=== PATIENT | male | born 1970 | race Caucasian/White ===

== ENCOUNTER 2020-10-30 12:47 | Emergency (ER) | payer MEDICAID ==
[~2020-10-30] VITALS: Ht 175.3 cm; Wt 82.7 kg
[2020-10-30 12:51] VITALS: BP 140/93
--- NOTE | 2020-10-30 14:09 | NUR ---
CALLED ANDREIA RODRIGUEZ CASE # [id number]
[2020-10-30] MEDS ORDERED: HYDROcodone/acetaminophen 5mg/325mg tablet PO ONE (14:45)
[2020-10-30] MEDS ORDERED: IBUP-1985 PO (15:32)
[2020-10-30] MEDS ORDERED: SULF1TAB49 PO (15:32)
== END 2020-10-30 15:41 | disposition home or self-care (01) ==
LOC: ER 12:48
DX: L02.416 Cutaneous abscess of left lower limb (principal); R07.81 Pleurodynia; M25.461 Effusion, right knee; F15.90 Other stimulant use, unspecified, uncomplicated; Z59.0 Homelessness; Z79.2 Long term (current) use of antibiotics; Z79.899 Other long term (current) drug therapy; Y09 Assault by unspecified means
CPT/HCPCS: 71045; 73564; 99284

== ENCOUNTER 2020-11-10 16:56 | Emergency (ER) | payer MEDICAID ==
[~2020-11-10] VITALS: Ht 175.3 cm; Wt 71.6 kg
[~2020-11-10 16:56] MED LIST: IBUP-1985 PO
[2020-11-10 17:16] VITALS: BP 140/68
[2020-11-10] MEDS ORDERED: SULF1TAB49 PO (17:44)
--- NOTE | 2020-11-10 17:50 | NUR ---
went in to assess the pt. after assessing his skin the pt pulled up his pants then started to rub his penis and asked me to "do a quick one" with him. I told him that was inappropriate and he needed to stop. He did not and continued to ask over and over "it would be fast". I told him no and redirected him to the discharge papers. left the room after.
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
== END 2020-11-10 17:49 | disposition home or self-care (01) ==
LOC: ER 16:56 → MERGE 16:56 → ER 17:49
DX: L03.116 Cellulitis of left lower limb (principal); F17.200 Nicotine dependence, unspecified, uncomplicated; F12.90 Cannabis use, unspecified, uncomplicated; F15.90 Other stimulant use, unspecified, uncomplicated; E07.9 Disorder of thyroid, unspecified; Z59.0 Homelessness; Z79.899 Other long term (current) drug therapy
CPT/HCPCS: 96374; 99283